=== PATIENT | male | born 1930 | race Caucasian/White ===

== ENCOUNTER 2018-10-09 09:28 | Day surgery (SDC) | payer MEDICARE, BC ==
[2018-10-09] MEDS ORDERED: Propofol 200 MG/20 ML SDV IV ONE (09:29)
[2018-10-09] MEDS ORDERED: Lidocaine 2% 100 MG/5 ML Syringe IVPUSH ONE (09:29)
[2018-10-09] MEDS ORDERED: Sodium Chloride 0.9% 10 ML Syringe FLUSH PRN (09:45)
[2018-10-09] MEDS ORDERED: Lactated Ringers 1,000 ML IV SCH (09:45)
--- NOTE | 2018-10-09 12:04 | PCM.HPR ---
H & P Addendum review - H & P Addendum Review Date Reviewed: 10/09/18 Time Reviewed: 11:20 Patient was Examined: No Changes
--- NOTE | 2018-10-09 12:06 | PCM.OPNOTE ---
- General Post-Op/Procedure Note Date of Surgery/Procedure: 10/09/18 Operative Procedure(s): EGD with dilation Findings: Dital Stricture, HH Pre Op Diagnosis: Dysphasia Post-Op Diagnosis: Same Anesthesia Technique: MAC Primary Surgeon: Tab Packer Complications: None Condition: Good
[2018-10-09 12:18] VITALS: BP 134/74
--- NOTE | 2018-10-09 16:19 | OR ---
DATE OF OPERATION: 10/09/2018 SURGEON: Tab Packer MD PREOPERATIVE DIAGNOSIS: Dysphagia. POSTOPERATIVE DIAGNOSES: 1. Distal esophageal stricture. 2. Hiatal hernia. PROCEDURE: EGD with dilatation. ANESTHESIA: IV sedation. DESCRIPTION OF PROCEDURE: The patient was brought to the procedure room, where he was placed on his left side and IV sedation administered. Oral bite block was placed and upper endoscope advanced into the esophagus under direct vision without difficulty. Vocal cords were viewed and were normal. The scope was advanced to the distal esophagus, where a wide circumferential stricture was identified. I was unable to pass the endoscope through this. The balloon dilator was placed and dilated to 16 mm. Balloon was then deflated, and there was bleeding at the stricture. I was able to pass the scope then into the stomach and duodenum. The duodenum and stomach appeared normal, other than a hiatal hernia present on retroflexion. This was approximately 3 cm in length. The stricture had minimal oozing initially and stopped spontaneously. Air was removed from the stomach and the scope withdrawn. The patient tolerated the procedure well and returned to Recovery in a stable condition. I spoke with Kayleigh Suarez about the findings. He will be started on omeprazole 20 mg daily. She will also start him on a soft diet since he had meat stuck in the last few days. /[id number] JOSE DE JESUS/JAHAIRA
== END 2018-10-09 12:25 | disposition home or self-care (01) ==
LOC: FB.SDS 09:28
PROVIDERS: ATTEND Surgery
DX: K22.2 Esophageal obstruction (principal); K44.9 Diaphragmatic hernia without obstruction or gangrene; I10 Essential (primary) hypertension; E87.6 Hypokalemia; E78.5 Hyperlipidemia, unspecified; E03.9 Hypothyroidism, unspecified; D64.9 Anemia, unspecified; F41.9 Anxiety disorder, unspecified; F32.9 Major depressive disorder, single episode, unspecified; G47.33 Obstructive sleep apnea (adult) (pediatric); N40.0 Benign prostatic hyperplasia without lower urinary tract symptoms; Z99.89 Dependence on other enabling machines and devices; Z79.899 Other long term (current) drug therapy
CPT/HCPCS: 00731-QZ; 82962; C1726; J2001; J2704; J7120